=== PATIENT | male | born 1945 | race Caucasian/White ===

== ENCOUNTER 2019-12-28 16:09 | Inpatient (IN) | payer MEDICARE, OTHER, SELFPAY ==
--- NOTE | 2019-12-28 | DI.ECHO.S_ITS ---
[facility]+ [facility] +---------+ : : [address] : : : : [id number] : : : : Phone: [phone]+ Echocardiogram Report + + :Name: RACHID HARLEY Study Date: 12/29/2019 Height: 71 in : :[facility] Weight: 235 lb : : Gender: Male BSA: 2.3 m2 : :: 1945 Age: 74 yrs BP: 141/73 mmHg: :Reason For Study: BILATERAL PE : :Ordering Physician: Lenard : :Hospitalist Performed By: Lucie Millan : :Referring: NEL KING : + + Interpretation Summary The left ventricle is normal in size. Left ventricular systolic function is normal without focal wall motion abnormalities. The ejection fraction is estimated to be 60-65%. Diastolic parameters suggest probable normal left ventricular diastolic function and normal filling pressures. The right ventricle is not well visualized. The right ventricular systolic function is normal. The right ventricular systolic pressure is estimated to be at least 31 mmHg based on an estimated right atrial pressure of 3 mm Hg. The left atrial size is normal. Right atrial size is normal. There is no significant valvular heart disease. The aortic root is normal size. Procedure: A two-dimensional transthoracic echocardiogram with color flow and Doppler was performed. There is no prior echocardiogram noted for this patient. The study quality was technically adequate. The patient was in sinus bradycardia with heart rates between 53-62 bpm during the exam. Left Ventricle: The left ventricle is normal in size. There is normal left ventricular wall thickness. Left ventricular systolic function is normal without focal wall motion abnormalities. The ejection fraction is estimated to be 60-65%. Diastolic parameters suggest probable normal left ventricular diastolic function and normal filling pressures. Right Ventricle: The right ventricle is not well visualized. The right ventricular systolic function is normal. Atria: The left atrial size is normal. Right atrial size is normal. The interatrial septum is intact with no evidence for an atrial septal defect. Mitral Valve: The mitral valve is normal in structure and function. There is no mitral regurgitation noted. Aortic Valve: The aortic valve is trileaflet. The aortic valve opens well. No aortic regurgitation is present. Tricuspid Valve: The tricuspid valve is normal in structure and function. There is mild tricuspid regurgitation. The right ventricular systolic pressure is estimated to be at least 31 mmHg based on an estimated right atrial pressure of 3 mm Hg. Pulmonic Valve: The pulmonic valve is not well seen, but is grossly normal. There is mild pulmonic regurgitation. There is no significant valvular heart disease. Great Vessels: The aortic root is normal size. The aortic arch is mild- moderately enlarged. The ascending aorta could not be visualized. The IVC is of normal diameter and collapses greater than 50% with a sniff. This suggests a low right atrial pressure of 3 mm Hg. Pericardium/ Pleura There is no pericardial effusion. There is no pleural effusion. MMode/2D Measurements & Calculations LVIDd: 4.0 cm LVOT diam: 2.2 cm LVIDs: 2.6 cm Ao root diam: 3.2 cm FS: 33.4 % Ao Arch Diam (Prox Trans): 3.8 cm EPSS: 0.89 cm IVSd: 0.87 cm LVPWd: 0.99 cm LV castañeda. diameter/BSA (cm/m^2): 1.7 LV sys. diameter/BSA (cm/m^2): 1.2 LA A2 area: 15.3 cm2 RA long axis: 4.6 cm LA A4 area: 17.8 cm2 RA area: 17.9 cm2 LA length (vol): 4.8 cm RA vol: 58.6 ml LA vol: 48.4 ml RA : 25.9 ml/m2 LA vol index: 21.4 ml/m2 IVC diam: 1.3 cm RVD1 (basal): 4.4 cm TAPSE: 2.4 cm Doppler Measurements & Calculations Ao V2 max: 111.8 cm/sec LVOT Max Anthony: 109.1 cm/sec Ao V2 mean: 73.3 cm/sec LV V1 max P.8 mmHg Ao max P.0 mmHg LV V1 VTI: 22.3 cm Ao mean P.5 mmHg COLLEEN(I,D): 3.6 cm2 Ao V2 VTI: 24.4 cm COLLEEN(V,D): 3.8 cm2 sev ratio: 0.92 COLLEEN indexed to BSA (cm^2/m^2): 1.6 MV E max anthony: 58.8 cm/sec TR max anthony: 263.3 cm/sec MV A max anthony: 54.9 cm/sec TR max P.8 mmHg MV E/A: 1.1 PA V2 max: 65.5 cm/sec Med Peak E' Anthony: 8.3 cm/sec PA V2 mean: 45.4 cm/sec E/E' med: 7.1 PA mean P.91 mmHg Lat Peak E' Anthony: 8.2 cm/sec PA Accel Time: 0.08 sec E/E' lat: 7.2 E/e' average: 7.1 MV dec time: 0.21 sec MV P1/2t: 60.1 msec MV 2t max anthony: 57.7 cm/sec SV(LVOT): 86.8 ml MVA(2t): 3.7 cm2 Reading Physician:02:39 PM
[2019-12-28 16:33] VITALS: BP 173/85; PULSE 77; RESP 16; TEMP 36.4; O2SAT 96; BMI 32.8
--- NOTE | 2019-12-28 19:25 | ED_ITS ---
HPI - Extremity Injury (Upper) <MEDHAT Cabezas - Last Filed: 12/28/19 22:26> General Chief Complaint: Extremity Injury, Upper Stated Complaint: LT LOWER PAIN AND LT SHOULDER PAIN COUGH UP BLOOD Time Seen by Provider: 12/28/19 19:10 Source: patient and family Mode of arrival: Ambulatory Limitations: no limitations History of Present Illness HPI narrative: The patient is a 74 year male nonsmoker with history of DVT who presents with a chief complaint of left-sided chest pain radiating up to his left shoulder. He states it started suddenly this afternoon, is worse with deep breath and a motion. He feels like he cannot catch his breath. He states he does have history of a DVT, is no longer on any anticoagulants other than aspirin. His previous DVT had no impetus, no surgery, no period of inactivity prior. He denies any current inactivity, surgeries, hospitalizations etcetera. He denies any fevers. He states that he coughed up a small amount of blood prior to coming in. Related Data Home Medications Medication Instructions Recorded Confirmed aspirin 243 mg PO DAILY 12/28/19 12/28/19 omeprazole 20 mg PO DAILY 12/28/19 12/28/19 Allergies Allergy/AdvReac Type Severity Reaction Status Date / Time No Known Drug Allergies Allergy Verified 12/28/19 22:35 Review of Systems <MEDHAT Cabezas - Last Filed: 12/28/19 22:26> Review of Systems Narrative: GENERAL: Denies chills, fatigue, malaise, fever, sweats. HEENT: Denies sinus pain, ear pain, sore throat, difficulty swallowing, dizziness. RESPIRATORY: See HPI CARDIOVASCULAR: See HPI GASTROINTESTINAL: Denies nausea, vomiting, abdominal pain, diarrhea, constipation, melena. : Denies dysuria, frequency, incontinence, hematuria, urinary retention. MUSCULOSKELETAL: denies weakness, joint pain, or bony pain SKIN: Denies rash, skin lesions, or other NEUROLOGIC: Denies weakness, headache, numbness, change in speech, confusion, seizures, incoordination. PSYCHIATRIC: No concerning psychosocial issues. 12 point review of systems is negative except for those stated above Patient History <MEDHAT Cabezas - Last Filed: 12/28/19 22:26> Medical History (Updated 12/29/19 @ 08:50 by FLORA Wang) Dyspepsia (Acute) Lumbar back pain (Acute) Varicose veins of both lower extremities (Acute) Surgical History (Updated 12/29/19 @ 08:50 by FLORA Wang) History of inguinal hernia repair (Acute) History of repair of rotator cuff (Acute) History of varicose vein ligation (Acute) Family History (Updated 12/29/19 @ 08:51 by FLORA Wang) Father Heart attack Coronary artery disease Mother Stroke Social History household members: spouse Smoking Status: Never smoker Smoking Status: Never smoker alcohol intake frequency: holidays/special occasions only Substance Use Type: does not use Exam <DEVIN Cabezas-BC - Last Filed: 12/28/19 22:26> Narrative Exam Narrative: GENERAL: This is a well-nourished, well-developed patient, in no acute distress with at bedside HEAD: Atraumatic. Normocephalic. No temporal or scalp tenderness. EYES: Pupils equal round and reactive. Extraocular motions intact. No scleral icterus. No injection or drainage. ENT: Nose without bleeding, purulent drainage or septal hematoma. Throat without erythema, tonsillar hypertrophy or exudate. Uvula midline. Airway patent. NECK: Trachea midline. No JVD or lymphadenopathy. Supple, nontender, no meningeal signs. CARDIOVASCULAR: Regular rate and rhythm RESPIRATORY: Clear to auscultation. Breath sounds equal bilaterally. No wheezes, rales, or rhonchi. Occasional cough. No increased respiratory effort. No accessory muscle use. GASTROINTESTINAL: Abdomen soft, non-tender, nondistended. No hepato- splenomegaly, or palpable masses. No guarding. EXTREMITIES: No clubbing, cyanosis, or edema. No joint tenderness, effusion, or edema noted. BACK: Nontender without deformity or crepitance. No flank tenderness. NEURO: AOx3. SKIN: No rash or erythema. Initial Vital Signs Initial Vital Signs: Vital Signs Temperature 97.6 F 12/28/19 16:33 Pulse Rate 77 12/28/19 16:33 Respiratory Rate 16 12/28/19 16:33 Blood Pressure 173/85 H 12/28/19 16:33 Pulse Oximetry 96 12/28/19 16:33 <Roberto Castle DO - Last Filed: 12/29/19 17:29> Initial Vital Signs Initial Vital Signs: Vital Signs Temperature 97.6 F 12/28/19 16:33 Pulse Rate 77 12/28/19 16:33 Respiratory Rate 16 12/28/19 16:33 Blood Pressure 173/85 H 12/28/19 16:33 Pulse Oximetry 96 12/28/19 16:33 Scores <MEDHAT CabezasBC - Last Filed: 12/28/19 22:26> GCS Bob coma scale eye opening: Spontaneous Bob coma scale verbal response: Orientated Bob coma scale motor response: Obey commands Rayle coma scale total score: 15 PERC Score Age greater than or equal to 50 years: Yes Heart rate greater than or equal to 100 bpm: No Room Air O2 Sat less than 95%: No Unilateral leg swelling: No Recent trauma or surgery: No Hemoptysis: Yes Prior PE or DVT: Yes Hormone Use: No Total PERC Score: 3 Wells' Criteria for PE Clinical signs and symptoms of DVT: No PE is #1 Dx or equally likely: Yes Heart rate > 100: No Immobilization at least 3 days or surg in previous 4 weeks: No History of PE or DVT: Yes Hemoptysis: Yes Malignancy w/Treatment within 6 months or palliative: No Wells' PE Score total: 5.5 Course <DAVID Cabezas - Last Filed: 12/28/19 22:26> Orders Ordered: Acetaminophen (Tylenol) 650 mg PO Q6HR PRN PRN Reason: Fever/Mild Pain (1-3) Al Hydrox/Mg Hydrox/Simethicone (Maalox Plus) 30 ml PO Q6HR PRN PRN Reason: Dyspepsia Bisacodyl (Dulcolax) 10 mg MO DAILY PRN PRN Reason: Constipation Calcium Carbonate (Tums) 1,000 mg PO Q4HR PRN PRN Reason: Dyspepsia Docusate Sodium (Colace) 100 mg PO BID PRN PRN Reason: Constipation Enoxaparin Sodium (Lovenox) 105 mg 1 mg/kg (105 mg) SUBCUT BID [facility] Last Admin: 12/29/19 09:31 Dose: 105 mg Documented by: JUAREZ Azithromycin 500 mg/ Dextrose 250 mls @ 250 mls/hr IV Q24H [facility] Last Admin: 12/29/19 06:24 Dose: 250 mls/hr Documented by: JES Ceftriaxone Sodium/Dextrose (Rocephin) 2 gm in 50 mls @ 100 mls/hr IV Q24H [facility] Last Admin: 12/29/19 05:26 Dose: 100 mls/hr Documented by: JES Naloxone HCl (Narcan) 0.2 mg IV Q2MIN PRN PRN Reason: Opiate Reversal Ondansetron HCl (Zofran) 4 mg IV Q8HR PRN PRN Reason: Nausea And Vomiting Last Admin: 12/29/19 08:32 Dose: 4 mg Documented by: JUAREZ Tramadol HCl (Ultram) 50 mg PO TID PRN PRN Reason: Pain, Moderate (4-6) Discontinued Medications Hydrocodone Bitart/Acetaminophen ([place] 5/325) 1 tab PO Q4HR PRN PRN Reason: Pain, Moderate (4-6) Last Admin: 12/29/19 01:03 Dose: 1 tab Documented by: Admin: 12/29/19 00:23 Dose: 1 tab Documented by: JES Hydrocodone Bitart/Acetaminophen ([place] 5/325) 2 tab PO Q4HR PRN PRN Reason: Pain, Severe (7-10) Last Admin: 12/29/19 05:39 Dose: 2 tab Documented by: JES Enoxaparin Sodium (Lovenox) 105 mg 1 mg/kg (105 mg) SUBCUT NOW ONE Stop: 12/28/19 22:22 Last Admin: 12/28/19 22:28 Dose: 105 mg Documented by: AYDEN Enoxaparin Sodium (Lovenox) 105 mg 1 mg/kg (105 mg) SUBCUT BID [facility] Last Admin: 12/29/19 10:09 Dose: Not Given Documented by: JUAREZ Hydromorphone HCl (Dilaudid) 1 mg IV Q4H PRN PRN Reason: Breakthrough Pain Last Admin: 12/29/19 02:46 Dose: 1 mg Documented by: JES Hydromorphone HCl (Dilaudid) 1 mg IV Q3HR PRN PRN Reason: Breakthrough Pain Last Admin: 12/29/19 05:27 Dose: 1 mg Documented by: JES Ketorolac Tromethamine (Toradol) 30 mg IV NOW ONE Stop: 12/29/19 04:25 Last Admin: 12/29/19 05:15 Dose: Not Given Documented by: JES Ketorolac Tromethamine (Toradol) 30 mg IV NOW ONE Stop: 12/29/19 05:16 Last Admin: 12/29/19 05:26 Dose: 30 mg Documented by: JES Vital Signs Vital signs: Vital Signs - 8 hr 12/28/19 16:33 12/28/19 22:16 Temperature 97.6 F 98.9 F Pulse Rate 77 86 Respiratory Rate 16 18 Blood Pressure 173/85 H Blood Pressure [Left Arm] 155/79 H Pulse Oximetry 96 92 <Roberto Castle, - Last Filed: 12/29/19 17:29> Orders Ordered: Acetaminophen (Tylenol) 650 mg PO Q6HR PRN PRN Reason: Fever/Mild Pain (1-3) Al Hydrox/Mg Hydrox/Simethicone (Maalox Plus) 30 ml PO Q6HR PRN PRN Reason: Dyspepsia Bisacodyl (Dulcolax) 10 mg MO DAILY PRN PRN Reason: Constipation Calcium Carbonate (Tums) 1,000 mg PO Q4HR PRN PRN Reason: Dyspepsia Docusate Sodium (Colace) 100 mg PO BID PRN PRN Reason: Constipation Enoxaparin Sodium (Lovenox) 105 mg 1 mg/kg (105 mg) SUBCUT BID [facility] Last Admin: 12/29/19 09:31 Dose: 105 mg Documented by: JUAREZ Azithromycin 500 mg/ Dextrose 250 mls @ 250 mls/hr IV Q24H [facility] Last Admin: 12/29/19 06:24 Dose: 250 mls/hr Documented by: JES Ceftriaxone Sodium/Dextrose (Rocephin) 2 gm in 50 mls @ 100 mls/hr IV Q24H [facility] Last Admin: 12/29/19 05:26 Dose: 100 mls/hr Documented by: JES Naloxone HCl (Narcan) 0.2 mg IV Q2MIN PRN PRN Reason: Opiate Reversal Ondansetron HCl (Zofran) 4 mg IV Q8HR PRN PRN Reason: Nausea And Vomiting Last Admin: 12/29/19 08:32 Dose: 4 mg Documented by: JUAREZ Tramadol HCl (Ultram) 50 mg PO TID PRN PRN Reason: Pain, Moderate (4-6) Discontinued Medications Hydrocodone Bitart/Acetaminophen ([place] 5/325) 1 tab PO Q4HR PRN PRN Reason: Pain, Moderate (4-6) Last Admin: 12/29/19 01:03 Dose: 1 tab Documented by: Admin: 12/29/19 00:23 Dose: 1 tab Documented by: JES Hydrocodone Bitart/Acetaminophen ([place] 5/325) 2 tab PO Q4HR PRN PRN Reason: Pain, Severe (7-10) Last Admin: 12/29/19 05:39 Dose: 2 tab Documented by: JES Enoxaparin Sodium (Lovenox) 105 mg 1 mg/kg (105 mg) SUBCUT NOW ONE Stop: 12/28/19 22:22 Last Admin: 12/28/19 22:28 Dose: 105 mg Documented by: AYDEN Enoxaparin Sodium (Lovenox) 105 mg 1 mg/kg (105 mg) SUBCUT BID [facility] Last Admin: 12/29/19 10:09 Dose: Not Given Documented by: JUAREZ Hydromorphone HCl (Dilaudid) 1 mg IV Q4H PRN PRN Reason: Breakthrough Pain Last Admin: 12/29/19 02:46 Dose: 1 mg Documented by: JES Hydromorphone HCl (Dilaudid) 1 mg IV Q3HR PRN PRN Reason: Breakthrough Pain Last Admin: 12/29/19 05:27 Dose: 1 mg Documented by: JES Ketorolac Tromethamine (Toradol) 30 mg IV NOW ONE Stop: 12/29/19 04:25 Last Admin: 12/29/19 05:15 Dose: Not Given Documented by: JES Ketorolac Tromethamine (Toradol) 30 mg IV NOW ONE Stop: 12/29/19 05:16 Last Admin: 12/29/19 05:26 Dose: 30 mg Documented by: JES Vital Signs Vital signs: Vital Signs - 8 hr 12/28/19 16:33 12/28/19 22:16 Temperature 97.6 F 98.9 F Pulse Rate 77 86 Respiratory Rate 16 18 Blood Pressure 173/85 H Blood Pressure [Left Arm] 155/79 H Pulse Oximetry 96 92 MDM - Extremity Injury (Upper) <DAVID Cabezas - Last Filed: 12/28/19 22:26> Lab Data Result diagrams: 12/29/19 05:54 12/29/19 05:54 Labs: Lab Results 12/28/19 12/28/19 12/28/19 Range/Units 19:42 20:15 20:15 WBC 11.2 H (4.5-11.0) X10^3/uL RBC 4.58 (4.5-5.9) X10^6/uL Hgb 15.0 (13.5-17.5) g/dL Hct 43.4 (41-53) % MCV 94.7 (80-100) fL MCH 32.8 (26-34) PG MCHC 34.6 (30-36) % RDW 13.0 (11.6-14.8) % Plt Count 214 (150-400) X10^3/uL Neut % (Auto) 68.3 (50-75) % Lymph % (Auto) 17.4 L (25-40) % [place] % (Auto) 12.5 (3-14) % Eos % (Auto) 1.6 L (2-4) % Baso % (Auto) 0.2 (0-2) % Neut # (Auto) 7700 H (3799-6630) /uL Lymph # (Auto) 2000 (1104-0993) /uL [place] # (Auto) 1400 H (0-900) /uL Eos # (Auto) 200 (0-450) /uL Baso # (Auto) 0 (0-100) /uL PT 12.4 (10.1-12.7) SECONDS INR 1.1 (0.9-1.3) APTT 27 (26.4-36.2) SECONDS D-Dimer 3716 H (<230) ng/mL Sodium (137-145) mmol/L Potassium (3.4-5.1) mmol/L Chloride (98-107) mmol/L Carbon Dioxide (22-32) mmol/L BUN (9-20) mg/dL Creatinine (0.66-1.25) mg/dL Estimated GFR (>60) mL/min BUN/Creatinine Ratio (6-22) Glucose (80-110) mg/dL Calcium (8.4-10.2) mg/dL Magnesium (1.6-2.3) mg/dL Total Bilirubin (0.2-1.3) mg/dL AST (17-59) IU/L ALT (<50) IU/L Alkaline Phosphatase (38-126) U/L Total Creatine Kinase (55-170) U/L CK-MB (CK-2) CK-MB (CK-2) Rel Index Troponin I (0.01-0.034) ng/mL NT-Pro-B Natriuret Pep (<125) pg/mL Total Protein (6.3-8.2) g/dL Albumin (3.5-5.0) g/dL Globulin (1.7-4.1) g/dL Albumin/Globulin Ratio (1.0-2.8) Procalcitonin (<0.5) ng/mL Urine RBC 0-1/hpf (0-5/HPF) Urine WBC 0-1/hpf (0-5/HPF) Other Crystals Hippuric acid Urine Bacteria None seen (None) Ur Culture Indicated? Cult not indicated 12/28/19 12/28/19 12/28/19 Range/Units 20:15 20:15 20:15 WBC (4.5-11.0) X10^3/uL RBC (4.5-5.9) X10^6/uL Hgb (13.5-17.5) g/dL Hct (41-53) % MCV (80-100) fL MCH (26-34) PG MCHC (30-36) % RDW (11.6-14.8) % Plt Count (150-400) X10^3/uL Neut % (Auto) (50-75) % Lymph % (Auto) (25-40) % [place] % (Auto) (3-14) % Eos % (Auto) (2-4) % Baso % (Auto) (0-2) % Neut # (Auto) (1308-1866) /uL Lymph # (Auto) (3854-6414) /uL [place] # (Auto) (0-900) /uL Eos # (Auto) (0-450) /uL Baso # (Auto) (0-100) /uL PT (10.1-12.7) SECONDS INR (0.9-1.3) APTT (26.4-36.2) SECONDS D-Dimer (<230) ng/mL Sodium 137 (137-145) mmol/L Potassium 4.7 (3.4-5.1) mmol/L Chloride 102 (98-107) mmol/L Carbon Dioxide 27 (22-32) mmol/L BUN 24 H (9-20) mg/dL Creatinine 1.00 (0.66-1.25) mg/dL Estimated GFR > 60.0 (>60) mL/min BUN/Creatinine Ratio 24.0 H (6-22) Glucose 118 H (80-110) mg/dL Calcium 9.2 (8.4-10.2) mg/dL Magnesium 2.3 (1.6-2.3) mg/dL Total Bilirubin 0.7 (0.2-1.3) mg/dL AST 40 (17-59) IU/L ALT 23 (<50) IU/L Alkaline Phosphatase 91 (38-126) U/L Total Creatine Kinase 86 (55-170) U/L CK-MB (CK-2) TNP CK-MB (CK-2) Rel Index TNP Troponin I < 0.012 (0.01-0.034) ng/mL NT-Pro-B Natriuret Pep 107 (<125) pg/mL Total Protein 8.4 H (6.3-8.2) g/dL Albumin 4.4 (3.5-5.0) g/dL Globulin 4.0 (1.7-4.1) g/dL Albumin/Globulin Ratio 1.1 (1.0-2.8) Procalcitonin 0.06 (<0.5) ng/mL Urine RBC (0-5/HPF) Urine WBC (0-5/HPF) Other Crystals Urine Bacteria (None) Ur Culture Indicated? Urine Dip Bedside Urine Glucose Negative Bedside Urine Bilirubin - Negative Bedside Urine Ketone - Negative Urine Specific [place] 1.025 Bedside Urine Occult Blood +/- Bedside Urine pH 6.0 Bedside Urine Protein +/- 15 Bedside Urine Urobilinogen - Negative Bedside Urine Nitrite - Negative Bedside Urine Leukocytes - Negative Esterase Imaging Data Chest x-ray: Radiologist's Impression: [address] [place] [id number] XRay Report Signed Patient: Alejandro Arreola YANELI#: [id number] : 7Acct:[id number] Age/Sex: 74 / MDate of Service: 12/28/19 Loc: ED Accession Number: [id number] Procedure: XR chest 2V Ordering Provider: Greta Templeton-JEANNIE PROCEDURE: XR CHEST 2V INDICATIONS: sob TECHNIQUE: 2 views of the chest were acquired. COMPARISON: None. FINDINGS: Surgical changes and devices: None. Lungs and pleura: Low lung volumes. Moderate left mid and lower lung airspace opacity. No pleural effusions or pneumothorax. Mediastinum: Mediastinal contours are normal. Heart size is normal. Bones and chest wall: No suspicious bony abnormalities. Soft tissues appear unremarkable. IMPRESSION: Left lung pneumonia. Dictated by: Malgorzata Zuluaga M.D. on 12/28/2019 at 20:01 Approved by: Malgorzata Zuluaga M.D. on 12/28/2019 at 20:01 CT scan - chest: Radiologist's Impression: [address] [place] [address] CT Scan Report Signed Patient: Alejandro Arreola JMR#: [id number] : [id number]:[id number] Age/Sex: 74 / MDate of Service: 12/28/19 Loc: ED Accession Number: [id number] Procedure: CT chest wo con Ordering Provider: Greta Templeton-JEANNIE PROCEDURE: CT CHEST W CON INDICATIONS: hx pe, sob TECHNIQUE: After the administration of intravenous contrast, 5 mm thick sections acquired from the pulmonary apices to the posterior costophrenic angles. 1 mm axial lung, 5 mm thick coronal and sagittal reformats and 7 mm axial MIP were acquired. For radiation dose reduction, the following was used: automated exposure control, adjustment of mA and/or kV according to patient size. COMPARISON: None. FINDINGS: Image quality: Excellent. Lungs and pleura: Bibasilar pneumonia is present. No pleural effusions or pneumothorax. Central and peripheral airways are patent and normal in caliber. Mediastinum: Heart size is normal. Calcification of the coronary vasculature. No pericardial effusion. No mediastinal or hilar adenopathy by size criteria. Thoracic aorta and central pulmonary arteries are normal in size. Low-density filling defects are seen within the bilateral lower lobe segmental and subsegmental pulmonary arterial branches. Esophagus is normal in caliber. Small hiatal hernia. Bones and chest wall: No small suspicious bony lesions. No vertebral body compression fractures. No axillary or supraclavicular adenopathy by size criteria. Thyroid gland is within normal limits. Abdomen: Visualized upper abdominal solid organs appear normal. Upper abdominal bowel loops are normal in caliber. IMPRESSION: 1.Bilateral left greater than right pulmonary emboli. 2. Bibasilar atelectasis versus pneumonia. 3. Coronary artery disease. 4. Small hiatal hernia. 5. Findings discussed with Greta Templeton on 12.28.19 at 2153 hrs. Dictated by: Malgorzata Zuluaga M.D. on 12/28/2019 at 21:56 Approved by: Malgorzata Zuluaga M.D. on 12/28/2019 at 22:00 ECG Data Attestation: I personally reviewed and interpreted this ECG as follows: Interpretation: Sinus rhythm. Ventricular rate 88. P.r. interval 218. Had no ectopy noted. [facility] Narrative Medical decision making narrative: The patient is a 74-year-old male who presents with a chief complaint of left-sided chest pain. He has history of DVT for a positive D-dimer. CT illustrate bilateral PEs. No elevated BNP or troponin, so no signs of right heart strain. The patient has had DVT prior, no impetus. Is possible that he has an inherited genetic coagulation disorder. I discussed length admission for echocardiogram etcetera. He is in accordance with that. Spoke with Mark HINES who kindly agreed to accept the patient for observation. Agreed upon Lovenox at 1 milligram/kilogram which was initiated in the emergency department. Patient have no questions or concerns regarding planned hospital stay. <Roberto Castle, - Last Filed: 12/29/19 17:29> Lab Data Labs: Lab Results 12/28/19 12/28/19 12/28/19 Range/Units 19:42 20:15 20:15 WBC 11.2 H (4.5-11.0) X10^3/uL RBC 4.58 (4.5-5.9) X10^6/uL Hgb 15.0 (13.5-17.5) g/dL Hct 43.4 (41-53) % MCV 94.7 (80-100) fL MCH 32.8 (26-34) PG MCHC 34.6 (30-36) % RDW 13.0 (11.6-14.8) % Plt Count 214 (150-400) X10^3/uL Neut % (Auto) 68.3 (50-75) % Lymph % (Auto) 17.4 L (25-40) % [place] % (Auto) 12.5 (3-14) % Eos % (Auto) 1.6 L (2-4) % Baso % (Auto) 0.2 (0-2) % Neut # (Auto) 7700 H (2528-9740) /uL Lymph # (Auto) 2000 (9384-5833) /uL [place] # (Auto) 1400 H (0-900) /uL Eos # (Auto) 200 (0-450) /uL Baso # (Auto) 0 (0-100) /uL PT 12.4 (10.1-12.7) SECONDS INR 1.1 (0.9-1.3) APTT 27 (26.4-36.2) SECONDS D-Dimer 3716 H (<230) ng/mL Sodium (137-145) mmol/L Potassium (3.4-5.1) mmol/L Chloride (98-107) mmol/L Carbon Dioxide (22-32) mmol/L BUN (9-20) mg/dL Creatinine (0.66-1.25) mg/dL Estimated GFR (>60) mL/min BUN/Creatinine Ratio (6-22) Glucose (80-110) mg/dL Calcium (8.4-10.2) mg/dL Magnesium (1.6-2.3) mg/dL Total Bilirubin (0.2-1.3) mg/dL AST (17-59) IU/L ALT (<50) IU/L Alkaline Phosphatase (38-126) U/L Total Creatine Kinase (55-170) U/L CK-MB (CK-2) CK-MB (CK-2) Rel Index Troponin I (0.01-0.034) ng/mL NT-Pro-B Natriuret Pep (<125) pg/mL Total Protein (6.3-8.2) g/dL Albumin (3.5-5.0) g/dL Globulin (1.7-4.1) g/dL Albumin/Globulin Ratio (1.0-2.8) Procalcitonin (<0.5) ng/mL Urine RBC 0-1/hpf (0-5/HPF) Urine WBC 0-1/hpf (0-5/HPF) Other Crystals Hippuric acid Urine Bacteria None seen (None) Ur Culture Indicated? Cult not indicated 12/28/19 12/28/19 12/28/19 Range/Units 20:15 20:15 20:15 WBC (4.5-11.0) X10^3/uL RBC (4.5-5.9) X10^6/uL Hgb (13.5-17.5) g/dL Hct (41-53) % MCV (80-100) fL MCH (26-34) PG MCHC (30-36) % RDW (11.6-14.8) % Plt Count (150-400) X10^3/uL Neut % (Auto) (50-75) % Lymph % (Auto) (25-40) % [place] % (Auto) (3-14) % Eos % (Auto) (2-4) % Baso % (Auto) (0-2) % Neut # (Auto) (8265-7089) /uL Lymph # (Auto) (7082-7174) /uL [place] # (Auto) (0-900) /uL Eos # (Auto) (0-450) /uL Baso # (Auto) (0-100) /uL PT (10.1-12.7) SECONDS INR (0.9-1.3) APTT (26.4-36.2) SECONDS D-Dimer (<230) ng/mL Sodium 137 (137-145) mmol/L Potassium 4.7 (3.4-5.1) mmol/L Chloride 102 (98-107) mmol/L Carbon Dioxide 27 (22-32) mmol/L BUN 24 H (9-20) mg/dL Creatinine 1.00 (0.66-1.25) mg/dL Estimated GFR > 60.0 (>60) mL/min BUN/Creatinine Ratio 24.0 H (6-22) Glucose 118 H (80-110) mg/dL Calcium 9.2 (8.4-10.2) mg/dL Magnesium 2.3 (1.6-2.3) mg/dL Total Bilirubin 0.7 (0.2-1.3) mg/dL AST 40 (17-59) IU/L ALT 23 (<50) IU/L Alkaline Phosphatase 91 (38-126) U/L Total Creatine Kinase 86 (55-170) U/L CK-MB (CK-2) TNP CK-MB (CK-2) Rel Index TNP Troponin I < 0.012 (0.01-0.034) ng/mL NT-Pro-B Natriuret Pep 107 (<125) pg/mL Total Protein 8.4 H (6.3-8.2) g/dL Albumin 4.4 (3.5-5.0) g/dL Globulin 4.0 (1.7-4.1) g/dL Albumin/Globulin Ratio 1.1 (1.0-2.8) Procalcitonin 0.06 (<0.5) ng/mL Urine RBC (0-5/HPF) Urine WBC (0-5/HPF) Other Crystals Urine Bacteria (None) Ur Culture Indicated? Urine Dip Bedside Urine Glucose Negative Bedside Urine Bilirubin - Negative Bedside Urine Ketone - Negative Urine Specific [place] 1.025 Bedside Urine Occult Blood +/- Bedside Urine pH 6.0 Bedside Urine Protein +/- 15 Bedside Urine Urobilinogen - Negative Bedside Urine Nitrite - Negative Bedside Urine Leukocytes - Negative Esterase Discharge Plan Departure Patient Disposition: Admitted as Observation Clinical Impression: Bilateral pulmonary embolism Discharge Date/Time: 12/28/19 22:35 Admit Date/Time: 12/28/19 22:25 Admit Provider: Dipak Flores
--- NOTE | 2019-12-28 19:33 | DI.RAD.S_ITS ---
PROCEDURE: XR CHEST 2V INDICATIONS: sob TECHNIQUE: 2 views of the chest were acquired. COMPARISON: None. FINDINGS: Surgical changes and devices: None. Lungs and pleura: Low lung volumes. Moderate left mid and lower lung airspace opacity. No pleural effusions or pneumothorax. Mediastinum: Mediastinal contours are normal. Heart size is normal. Bones and chest wall: No suspicious bony abnormalities. Soft tissues appear unremarkable. IMPRESSION: Left lung pneumonia. Dictated by: Malgorzata Zuluaga M.D. on 12/28/2019 at 20:01 Approved by: Malgorzata Zuluaga M.D. on 12/28/2019 at 20:01
[2019-12-28 20:07] LABS: Bacteria Urine None Seen
[2019-12-28 20:29] LABS: Add Manual Diff / Slide Review NO; Basophils Absolute Auto 0 /uL (0-100); Basophils Percent Auto 0.2 % (0-2); Eosinophils Absolute Auto 200 /uL (0-450); Eosinophils Percent Auto 1.6 % (2-4); Hematocrit 43.4 % (41-53); Lymphocytes Absolute Auto 2000 /uL (1100-4500); Lymphocytes Percent Auto 17.4 % (25-40); Mean Corpuscular HGB Conc 34.6 % (30-36); Mean Corpuscular Hemoglobin 32.8 PG (26-34); Mean Corpuscular Volume 94.7 fL (80-100); Monocytes Absolute Auto 1400 /uL (0-900); Monocytes Percent Auto 12.5 % (3-14); Neutrophils Absolute Auto 7700 /uL (1500-7000); Neutrophils Percent Auto 68.3 % (50-75); Platelet Count 214 X10^3/uL (150-400); Red Blood Cell Count 4.58 X10^6/uL (4.5-5.9); White Blood Cell Count 11.2 X10^3/uL (4.5-11.0)
[2019-12-28 20:34] LABS: RBC Urine 0-1/HPF (0-5/HPF); WBC Urine 0-1/HPF (0-5/HPF)
[2019-12-28 20:35] LABS: Culture Indicated Urine Cult Not Indicated
[2019-12-28 20:44] LABS: Creatine Kinase 86 U/L (55-170); Magnesium 2.3 mg/dL (1.6-2.3)
[2019-12-28 20:45] LABS: Alanine Aminotransferase 23 IU/L (<50); Albumin 4.4 g/dL (3.5-5.0); Albumin Globulin Ratio 1.1 (1.0-2.8); Alkaline Phosphatase 91 U/L (38-126); Aspartate Aminotransferase 40 IU/L (17-59); Bilirubin Total 0.7 mg/dL (0.2-1.3); Blood Urea Nitrogen 24 mg/dL (9-20); Calcium 9.2 mg/dL (8.4-10.2); Carbon Dioxide 27 mmol/L (22-32); Chloride 102 mmol/L (98-107); Estimated Glomerular Filt Rate > 60.0 mL/min (>60); Glucose 118 mg/dL (80-110); Potassium 4.7 mmol/L (3.4-5.1); Sodium 137 mmol/L (137-145); Total Protein 8.4 g/dL (6.3-8.2)
[2019-12-28 20:46] LABS: HEMOLYSIS 85 (0-50)
[2019-12-28 20:54] LABS: INR 1.1 (0.9-1.3); NT-proBNP (BNP-Adult 18+) 107 pg/mL (<125); Prothrombin Time 12.4 SECONDS (10.1-12.7)
[2019-12-28 20:57] LABS: PTT Partial Thromboplastin Tim 27 SECONDS (26.4-36.2)
[2019-12-28 21:07] LABS: D Dimer 3716 ng/mL (<230)
--- NOTE | 2019-12-28 21:08 | DI.CT.S_ITS ---
PROCEDURE: CT CHEST W CON INDICATIONS: hx pe, sob TECHNIQUE: After the administration of intravenous contrast, 5 mm thick sections acquired from the pulmonary apices to the posterior costophrenic angles. 1 mm axial lung, 5 mm thick coronal and sagittal reformats and 7 mm axial MIP were acquired. For radiation dose reduction, the following was used: automated exposure control, adjustment of mA and/or kV according to patient size. COMPARISON: None. FINDINGS: Image quality: Excellent. Lungs and pleura: Bibasilar pneumonia is present. No pleural effusions or pneumothorax. Central and peripheral airways are patent and normal in caliber. Mediastinum: Heart size is normal. Calcification of the coronary vasculature. No pericardial effusion. No mediastinal or hilar adenopathy by size criteria. Thoracic aorta and central pulmonary arteries are normal in size. Low-density filling defects are seen within the bilateral lower lobe segmental and subsegmental pulmonary arterial branches. Esophagus is normal in caliber. Small hiatal hernia. Bones and chest wall: No small suspicious bony lesions. No vertebral body compression fractures. No axillary or supraclavicular adenopathy by size criteria. Thyroid gland is within normal limits. Abdomen: Visualized upper abdominal solid organs appear normal. Upper abdominal bowel loops are normal in caliber. IMPRESSION: 1.Bilateral left greater than right pulmonary emboli. 2. Bibasilar atelectasis versus pneumonia. 3. Coronary artery disease. 4. Small hiatal hernia. 5. Findings discussed with Greta Templeton on 12.28.19 at 2153 hrs. Dictated by: Malgorzata Zuluaga M.D. on 12/28/2019 at 21:56 Approved by: Malgorzata Zuluaga M.D. on 12/28/2019 at 22:00
[2019-12-28 21:11] LABS: Troponin I < 0.012 ng/mL (0.01-0.034)
[2019-12-28 21:16] LABS: Procalcitonin 0.06 ng/mL (<0.5)
[2019-12-28 21:30] VITALS: O2SAT 92
[2019-12-28 22:16] VITALS: BP 155/79; PULSE 86; RESP 18; TEMP 37.2; O2SAT 92
[2019-12-28] MEDS: ENOXAPARIN 80 MG/0.8 ML SYRINGE 105 MG SUBCUT (22:28)
[2019-12-28 22:40] VITALS: BP 148/81; PULSE 88; RESP 20; TEMP 36.9; O2SAT 92; BMI 32.8
--- NOTE | 2019-12-28 23:00 | P.HP_ITS ---
History of Present Illness History of Present Illness Date Patient Seen: 12/28/19 Time Patient Seen: 23:10 Chief complaint: LT LOWER PAIN AND LT SHOULDER PAIN COUGH UP BLOOD Narrative: Mr. Alejandro Waggoner is a 74-year-old male who with a history significant for prior DVT of the right leg with a familial history of DVT, varicose veins and L4-5 back pain who presents to the ER with complaints of sudden onset left-sided chest pain. Patient was in his usual state health in participating in [employer] class after which he developed a sudden onset left-sided chest pain radiating to the left shoulder this afternoon. He describes the pain as pleuritic in nature worsening with deep inspiration and with movement. He describes associated shortness of breath and difficulty taking a full breath related to the pain and has had an episode hemoptysis. Patient has had a prior DVT that was unprovoked and reports having been evaluated for familial linked hypercoagulable syndromes but does not recall if he had Leiden factor 5 evaluated. Patient has no current risk factors or precipitating events. Reports no recent fevers or chills, headaches and dizziness, nasal congestion or sore throat. He has chest pain as above with associated shortness of breath but denies cough or wheezing. He denies heartburn, nausea or vomiting but describes a discomfort in the right upper quadrant of his abdomen that is non palpable reproducible. He reports no changes in bowel or bladder habits. He is normally active and fully independent in all ADLs. Upon arrival the ER the patient's Tommy febrile with temperature 97.6?, heart rate of 77, blood pressure of 173/85, respirations 16 saturating 96%. On EKG the patient has a sinus rhythm with a ventricular rate of 77 without ectopy or block and no ST or T-wave changes. The patient underwent a chest CT with contrast which finds bibasilar atelectasis versus pneumonia pneumonia in feeling deficits of bilateral segmental and subsegmental pulmonary artery branches left greater than right. A chest x-ray is obtained which finds left middle lobe and lower lobe opacities consistent with pneumonia. On laboratory analysis the patient has a white count of 11.2, hemoglobin 15, hematocrit 43.4 and platelets of 214. A coagulation has a PT of 12 point, INR 0.1 and PTT of 27. He has an elevated D- dimer 3716. His electrolytes are within normal limits he has a BUN of 24 and a creatinine 1.0. His LFTs are within normal limits and has a magnesium of 2.3. His total CK is 86 has a troponin of less than 0.012. His proBNP is 107. Procalcitonin is 0.06. In the ER the patient is started on Lovenox 1 milligram/kilogram and is admitted for bilateral PE and left lung pneumonia. Patient History Medical History (Updated 12/29/19 @ 08:50 by FLORA Wang) Dyspepsia (Acute) Lumbar back pain (Acute) Varicose veins of both lower extremities (Acute) Surgical History (Updated 12/29/19 @ 08:50 by FLORA Wang) History of inguinal hernia repair (Acute) History of repair of rotator cuff (Acute) History of varicose vein ligation (Acute) Family & Social History Family History (Updated 12/29/19 @ 08:51 by FLORA Wang) Father Heart attack Coronary artery disease Mother Stroke Safety & Behavioral: Feels Safe in Current Yes Environment Been Physically Hurt or No Threatened By a Person Tobacco & Substance use: Smoking Status Never smoker alcohol intake frequency holiday/special occasion Substance Use Type does not use Comment: The patient lives in a single family two-story home with his to whom he has been for 12 years. The patient endorses a strong family history of hypercoagulability with multiple family member it's experiencing DVTs and pulmonary emboli. His father had heart attack at age 43 and from heart attack at age 50. His mother from stroke. Smoking: Patient tried cigarettes and pipe smoking in college. Alcohol: Patient endorses consuming alcohol 3-4 times monthly. Substance use: The patient denies recreational pharmaceuticals herbal or cannabis products. Advanced directives: The patient states he has formal advanced directives and states his desire to be FULL CODE. He designates his to be his surrogate decision maker. Meds Home Medications and Allergies Home Medications Medication Instructions Recorded Confirmed Type aspirin 243 mg PO DAILY 12/28/19 12/28/19 History omeprazole 20 mg PO DAILY 12/28/19 12/28/19 History Allergies Allergy/AdvReac Type Severity Reaction Status Date / Time No Known Drug Allergies Allergy Verified 12/28/19 22:35 Review of Systems Review of Systems ROS: Yes All systems reviewed with the patient and are negative except as otherwise documented Exam Vital Signs (past 8 hours): - 12/28/19 16:33 12/28/19 22:16 Temperature 97.6 F 98.9 F Pulse Rate 77 86 Respiratory Rate 16 18 Blood Pressure 173/85 H Blood Pressure [Left Arm] 155/79 H Pulse Oximetry 96 92 Oxygen Delivery Method Room Air Narrative Exam Narrative: GENERAL APPEARANCE: well developed, obese male, mildly uncomfortable appearing in no acute distress. HEENT: Normocephalic, PERRLA, conjunctiva clear, sclera anicteric, no sinus tenderness to percussion, no rhinorrhea, oropharynx pink and moist. NECK/THYROID: neck supple, no jugular venous distention, no carotid bruit, no thyromegaly, trachea midline. LYMPH NODES: no cervical or supraclavicular lymphadenopathy. SKIN: warm and dry, no suspicious lesions, no rashes, good turgor. HEART: regular rate and rhythm, S1-S2 without murmur, no rubs or gallops, brisk capillary refill, trace pedal edema LUNGS: clear to auscultation bilaterally, no coarseness crackles or wheezing, no cough present CHEST: Symmetrical movement, no accessory muscle use, shallow tidal volume with pain on deep inspiration ABDOMEN: Soft, no distention, no abdominal tenderness on palpation, no guarding or peritoneal signs, no organomegaly, no flank or suprapubic tenderness, active bowel tones. BACK: Normal curvature, nontender to palpation, no CVA tenderness on percussion EXTREMITIES: moves all extremities, strength is 5/5 and symmetrical, no deformities or joint effusions. NEUROLOGIC: AAO x4, no focal neurologic deficits, cranial nerves II-XII grossly intact , sensation intact to light touch. PSYCH: alert, cognitive function intact, good eye contact, appropriate with stable behavior Objective Labs Result Diagrams: 12/29/19 05:54 12/29/19 05:54 Labs: Laboratory Results - last 24 hr 12/28/19 12/28/19 12/28/19 19:42 20:15 20:15 WBC 11.2 H RBC 4.58 Hgb 15.0 Hct 43.4 MCV 94.7 MCH 32.8 MCHC 34.6 RDW 13.0 Plt Count 214 Neut % (Auto) 68.3 Lymph % (Auto) 17.4 L [place] % (Auto) 12.5 Eos % (Auto) 1.6 L Baso % (Auto) 0.2 Neut # (Auto) 7700 H Lymph # (Auto) 2000 [place] # (Auto) 1400 H Eos # (Auto) 200 Baso # (Auto) 0 PT 12.4 INR 1.1 APTT 27 D-Dimer 3716 H Sodium Potassium Chloride Carbon Dioxide BUN Creatinine Estimated GFR BUN/Creatinine Ratio Glucose Calcium Magnesium Total Bilirubin AST ALT Alkaline Phosphatase Total Creatine Kinase CK-MB (CK-2) CK-MB (CK-2) Rel Index Troponin I NT-Pro-B Natriuret Pep Total Protein Albumin Globulin Albumin/Globulin Ratio Procalcitonin Urine RBC 0-1/hpf Urine WBC 0-1/hpf Other Crystals Hippuric acid Urine Bacteria None seen Ur Culture Indicated? Cult not indicated 12/28/19 12/28/19 12/28/19 20:15 20:15 20:15 WBC RBC Hgb Hct MCV MCH MCHC RDW Plt Count Neut % (Auto) Lymph % (Auto) [place] % (Auto) Eos % (Auto) Baso % (Auto) Neut # (Auto) Lymph # (Auto) [place] # (Auto) Eos # (Auto) Baso # (Auto) PT INR APTT D-Dimer Sodium 137 Potassium 4.7 Chloride 102 Carbon Dioxide 27 BUN 24 H Creatinine 1.00 Estimated GFR > 60.0 BUN/Creatinine Ratio 24.0 H Glucose 118 H Calcium 9.2 Magnesium 2.3 Total Bilirubin 0.7 AST 40 ALT 23 Alkaline Phosphatase 91 Total Creatine Kinase 86 CK-MB (CK-2) TNP CK-MB (CK-2) Rel Index TNP Troponin I < 0.012 NT-Pro-B Natriuret Pep 107 Total Protein 8.4 H Albumin 4.4 Globulin 4.0 Albumin/Globulin Ratio 1.1 Procalcitonin 0.06 Urine RBC Urine WBC Other Crystals Urine Bacteria Ur Culture Indicated? Assessment & Plan Assessment & Plan narrative: This is a 74-year-old active male experienced sudden onset of chest pain and is found to have bilateral pulmonary emboli and pneumonia. 1. Bilateral segmental and subsegmental mental pulmonary emboli, present on admission, active. -Patient with left-sided chest pain radiating to the left shoulder described as sudden Patterson and pleuritic in nature, -Patient with previous history of DVT left leg and has been taking aspirin 81 mg daily. -Strong family history of hypercoagulability with multiple family members having DVTs and PEs. Patient states he has been evaluated but unclear of results. -total CK is 86, troponin is less than 0.012 and proBNP is 107. -The patient has had marked pain rating his pain at 8/10, ordered Dresher 5-10 mg every 4 hours as needed, hydromorphone 1 mg every 4 hours as needed for breakthrough pain. -Ordered Lovenox 1 milligram/kilogram twice daily. -pulmonary emboli are unprovoked. Ordered Leiden factor V test. 2. Left middle and left lower lobe pneumonia, present on admission, active. Patient with left-sided chest pain radiating to the left shoulder described as sudden Patterson and pleuritic in nature. Chest x-ray finds left middle lobe and left lower lobe opacities consistent with pneumonia, chest CT described atelectasis versus bibasilar pneumonia. White blood cell count is 11.2, procalcitonin is 0.06 Ordered azithromycin 500 mg IV daily for 3 doses. Ordered ceftriaxone 2 g IV daily. Will follow Infectious indicators. VTE prophylaxis: Bilateral SCDs, therapeutic Lovenox IV fluid: Saline lock Diet: Heart healthy The patient is admitted to the hospital for chest pain related to pulmonary emboli and pneumonia. The patient is admitted as an inpatient with expected length of stay to be greater than 2 midnights. Scores GCS [place] coma scale eye opening: Spontaneous Bob coma scale verbal response: Orientated [place] coma scale motor response: Obey commands [place] coma scale total score: 15
--- NOTE | 2019-12-28 23:16 | PC.ADMIT ---
[address] [facility] Admission Note: The patient,Alejandro Arreola,74 y/o, was given written information regarding hospital policies, unit procedures and contact persons. Pt arrived from ED via w/c at approx 2240. Trans to bed. Steady on feet. A/O. RA sats 90%. Reports Left lung pain 6/10 with deep breathing. 2L NC applied sats increased to 96%. Oriented to room and call system. supportive at bedside. Patient's smoking status: Never smoker. Vital Signs - 8 hr 12/28/19 16:33 12/28/19 22:16 12/28/19 22:40 Temperature 97.6 F 98.9 F 98.5 F Pulse Rate 77 86 88 Respiratory Rate 16 18 20 Blood Pressure 173/85 H 148/81 H Blood Pressure [Left Arm] 155/79 H Pulse Oximetry 96 92 92
[2019-12-29] VITALS (8 sets, daily range): BP systolic 116–141; BP diastolic 71–89; PULSE 57–83; RESP 16–20; TEMP 35.9–37.6; O2SAT 92–97
[2019-12-29] MEDS: HYDROCODONE/ACET 5/325 TABLET 1 TAB PO ×2 (00:23→01:03)
[2019-12-29] MEDS: HYDROMORPHONE 2 MG INJ 1 MG IV ×2 (02:46→05:27)
--- NOTE | 2019-12-29 04:29 | PC.NURSE ---
Addendum entered by Rajiv Robin R.N. 12/29/19 06:33: Patient educated about the use of IS and is able to get to 1500. Patient stated pain level is now at 2/10. Addendum entered by Rajiv Robin R.N. 12/29/19 06:01: Respiratory Therapy initiated 5 liters O2, NC humidified air, Pt's O2 saturation 95%. Original Note: Patient alert and orientated, Patient Lung sounds clear bilaterally, but Dim in the bases. Patient has pain on inspiration 6/10, and was on 2 liters O2 [place] on admission. Patient's O2, saturation has dipped into high 80's and I bumped up his O2 to 4L. Telephoned Respiratory and asked him to come up to evaluate at 0425. Notified Jeffery HINES at 0425 that Patient's O2 sats were still low and he was still in quite a bit of pain and very uncomfortable. Jeffery ordered now dose of toradol 30mg and changed 1mg dilaudid order to Q3.
[2019-12-29] MEDS: KETOROLAC 30 MG/ML VIAL IV (05:26)
[2019-12-29] MEDS: CEFTRIAXONE 2 GM/50 ML FROZ.PIGGY IV (05:26)
[2019-12-29] MEDS: HYDROCODONE/ACET 5/325 TABLET 2 TAB PO (05:39)
[2019-12-29] MEDS: AZITHROMYCIN 500 MG in DEXTROSE 5% IN WATER 250 ML IV (06:24)
[2019-12-29 06:33] LABS: BUN Creatinine Ratio 20.9 (6-22); Blood Urea Nitrogen 23 mg/dL (9-20); Calcium 9.2 mg/dL (8.4-10.2); Carbon Dioxide 30 mmol/L (22-32); Chloride 103 mmol/L (98-107); Estimated Glomerular Filt Rate > 60.0 mL/min (>60); Glucose 118 mg/dL (80-110); HEMOLYSIS < 15 (0-50); Potassium 4.6 mmol/L (3.4-5.1); Sodium 137 mmol/L (137-145)
[2019-12-29 06:35] LABS: Add Manual Diff / Slide Review NO; Basophils Absolute Auto 0 /uL (0-100); Basophils Percent Auto 0.2 % (0-2); Eosinophils Absolute Auto 100 /uL (0-450); Hematocrit 43.9 % (41-53); Hemoglobin 14.8 g/dL (13.5-17.5); Lymphocytes Absolute Auto 2000 /uL (1100-4500); Lymphocytes Percent Auto 18.7 % (25-40); Mean Corpuscular HGB Conc 33.7 % (30-36); Mean Corpuscular Hemoglobin 32.4 PG (26-34); Mean Corpuscular Volume 96.2 fL (80-100); Monocytes Absolute Auto 1500 /uL (0-900); Monocytes Percent Auto 13.8 % (3-14); Neutrophils Absolute Auto 7000 /uL (1500-7000); Neutrophils Percent Auto 66.3 % (50-75); Platelet Count 213 X10^3/uL (150-400); Red Blood Cell Count 4.56 X10^6/uL (4.5-5.9); Red Cell Distribution Width 13.3 % (11.6-14.8); White Blood Cell Count 10.6 X10^3/uL (4.5-11.0)
[2019-12-29] MEDS: ONDANSETRON 4 MG/2 ML INJ IV (08:32)
--- NOTE | 2019-12-29 08:53 | PC.NURSE ---
Addendum entered by Gino Nieves R.N. 12/29/19 14:47: Patient remains alert and oriented this shift. Symptoms experienced as detailed in previous note not present after approx. 1100. Patient denies pain with breathing as of this time. Patient weaned from 5LPM of O2 to 3LPM over course of shift, sats mid 90s. SCDs remain in place. Original Note: 0840 - RN notified by [employer] that patient diaphoretic and with nausea, but reports that patient states symptoms came and went. RN in to assess patient, who reports onset of same symptoms again, with a sudden new fatigue. Patient denies any chest pain. Patient then self removed oxygen due to nausea and anticipation of vomiting for approx. 2 min. Zofran administered, oxygen replaced as patient desaturated to 87% on room air. Sats up to 95 on 4LPM. VS taken, HR 65, BP 116/73, temp 96.[address] [facility]. Desouza notified in person of change in patient condition, states she will assess patient at bedside. Care is ongoing.
--- NOTE | 2019-12-29 09:10 | PM.PN.1 ---
Subjective Subjective Date Patient Seen: 12/29/19 Interval history: 74 y/o man admitted for bilateral subsegmental PE's and Community Acquired Pneumonia. Patient contineus to have pleuritic pain. He developed nausea and fatigue earlier today. Patient reports not being able to sleep for the last few nights. After Zofran patient feels better. He remains hypoxic although on 4 liters instead of 5 liters of oxygen. Exam Vital Signs (past 8 hours): - 12/29/19 04:13 12/29/19 08:45 Temperature 96.9 F L Pulse Rate 81 65 Respiratory Rate 20 16 Blood Pressure 141/73 H 116/73 Pulse Oximetry 92 94 Oxygen Delivery Method Nasal Cannula Oxygen Flow Rate 4 Narrative Exam Narrative: ill appearing male, short of breath, pale Lungs: decreased breath sounds with bilateral bibasilar crackles CV: RRR nl Sl S2 ABd: soft/ non tender/non distended Ext: No edema Objective Labs Result Diagrams: 12/29/19 05:54 12/29/19 05:54 Labs: Laboratory Results - last 24 hr 12/28/19 12/28/19 12/28/19 19:42 20:15 20:15 WBC 11.2 H RBC 4.58 Hgb 15.0 Hct 43.4 MCV 94.7 MCH 32.8 MCHC 34.6 RDW 13.0 Plt Count 214 Neut % (Auto) 68.3 Lymph % (Auto) 17.4 L [place] % (Auto) 12.5 Eos % (Auto) 1.6 L Baso % (Auto) 0.2 Neut # (Auto) 7700 H Lymph # (Auto) 2000 [place] # (Auto) 1400 H Eos # (Auto) 200 Baso # (Auto) 0 PT 12.4 INR 1.1 APTT 27 D-Dimer 3716 H Sodium Potassium Chloride Carbon Dioxide BUN Creatinine Estimated GFR BUN/Creatinine Ratio Glucose Calcium Magnesium Total Bilirubin AST ALT Alkaline Phosphatase Total Creatine Kinase CK-MB (CK-2) CK-MB (CK-2) Rel Index Troponin I NT-Pro-B Natriuret Pep Total Protein Albumin Globulin Albumin/Globulin Ratio Procalcitonin Urine RBC 0-1/hpf Urine WBC 0-1/hpf Other Crystals Hippuric acid Urine Bacteria None seen Ur Culture Indicated? Cult not indicated 12/28/19 12/28/19 12/28/19 20:15 20:15 20:15 WBC RBC Hgb Hct MCV MCH MCHC RDW Plt Count Neut % (Auto) Lymph % (Auto) [place] % (Auto) Eos % (Auto) Baso % (Auto) Neut # (Auto) Lymph # (Auto) [place] # (Auto) Eos # (Auto) Baso # (Auto) PT INR APTT D-Dimer Sodium 137 Potassium 4.7 Chloride 102 Carbon Dioxide 27 BUN 24 H Creatinine 1.00 Estimated GFR > 60.0 BUN/Creatinine Ratio 24.0 H Glucose 118 H Calcium 9.2 Magnesium 2.3 Total Bilirubin 0.7 AST 40 ALT 23 Alkaline Phosphatase 91 Total Creatine Kinase 86 CK-MB (CK-2) TNP CK-MB (CK-2) Rel Index TNP Troponin I < 0.012 NT-Pro-B Natriuret Pep 107 Total Protein 8.4 H Albumin 4.4 Globulin 4.0 Albumin/Globulin Ratio 1.1 Procalcitonin 0.06 Urine RBC Urine WBC Other Crystals Urine Bacteria Ur Culture Indicated? 12/29/19 12/29/19 05:54 05:54 WBC 10.6 RBC 4.56 Hgb 14.8 Hct 43.9 MCV 96.2 MCH 32.4 MCHC 33.7 RDW 13.3 Plt Count 213 Neut % (Auto) 66.3 Lymph % (Auto) 18.7 L [place] % (Auto) 13.8 Eos % (Auto) 1.0 L Baso % (Auto) 0.2 Neut # (Auto) 7000 Lymph # (Auto) 2000 [place] # (Auto) 1500 H Eos # (Auto) 100 Baso # (Auto) 0 PT INR APTT D-Dimer Sodium 137 Potassium 4.6 Chloride 103 Carbon Dioxide 30 BUN 23 H Creatinine 1.10 Estimated GFR > 60.0 BUN/Creatinine Ratio 20.9 Glucose 118 H Calcium 9.2 Magnesium Total Bilirubin AST ALT Alkaline Phosphatase Total Creatine Kinase CK-MB (CK-2) CK-MB (CK-2) Rel Index Troponin I NT-Pro-B Natriuret Pep Total Protein Albumin Globulin Albumin/Globulin Ratio Procalcitonin Urine RBC Urine WBC Other Crystals Urine Bacteria Ur Culture Indicated? Assessment & Plan Assessment & Plan narrative: 1. Acute Hypoxic REspiratory Failure -multifactorial secondary to Bilateral Pulmonary Emboli and Pneumonia -patient continues to require high dose oxygen -reports fatigue and nausea -continue oxygen for symptomatic hypoxia -will check EKG/Troponins 2. Bilateral Subsegmental PE -likely family history of hypercoagulabiilty -Factor 5 Leiden sent -needs complete hematologic work up which can be completed as an outpatient -Continue BID lovenox, can switch to oral anticogulant at discharge ( xeralto) 3. Community Acquired Pneumonia -likely contributing to Hypoxia -CT Scan and Chest Xray confirms -Physical Exam consistent as well -Continue Azithromycin/Ceftriaxone -Will check respiratory panel 4. Nausea/Fatigue -likely related to narcotics and underlying illness -d/c narcotics -ultram, prn tordol if needed Patient is very ill and will need to remain hospitalized until no longer hypoxic at the bedside, questions answered.
[2019-12-29] MEDS: ENOXAPARIN 60 MG/0.6 ML SYRINGE 105 MG SUBCUT ×2 (09:31→20:45)
[2019-12-29 10:25] LABS: Troponin I < 0.012 ng/mL (0.01-0.034)
--- NOTE | 2019-12-29 13:55 | CM.DANOTE ---
Discharge Planning/Care Management DCP: assessment: case received, EMR reviewed and met with pt and his Darwin during Bedside Team Rounds. Introduced self and role. Pt is a 74 year old male who admitted to care of hospitalist team last night. PCP: Pablo Mejia: [facility] Payer: Medicare and [employer] Admission status: INPT: confirmed by UR CHANELLE Grant. Pt is admitted for bilateral PEs and community acquired pneumonia. Dr. Desouza notes that pt remains hypoxic on 4 L o2. She states to pt, Darwin and team that pt will need to continue hospital level care until he is able to be completely off the oxygen. DCP team will be following as POC unfolds. Anticipate d/c to home setting when stable for same but pt currently appears quite ill. Advanced directive, confirm from CLINIC Start: 12/28/19 23:03 Freq: Q24H Status: Active Protocol: Document 12/29/19 07:00 (Rec: 12/29/19 13:39 SL [id number]) Advance Directive, confirm on record Time 09:00 Person contacted Spouse Copy received No CM Discharge Assessment Start: 12/29/19 13:53 Freq: Status: Active Protocol: Document 12/29/19 13:54 ITV (Rec: 12/29/19 13:54 ITV [id number]) Discharge Planning Assessment Advance Directives? Yes History Provided By Patient,Family Member,Medical Record Prior Living Arrangements House Household Members spouse Independent with ADL's Yes Is patient alert and oriented? Yes White board Updated in Patient Room with Yes name and ext. # of Tube Carrier Review Status In Process
[2019-12-29] MEDS: DOCUSATE 100 MG CAPSULE PO (19:31)
[2019-12-29] MEDS: ACETAMINOPHEN 325 MG TABLET 650 MG PO (19:31)
[2019-12-29] MEDS: TRAMADOL 50 MG TABLET PO (20:54)
[2019-12-29 23:42] LABS: Adenovirus Not Detected (Not Detect); Bordetella pertussis Not Detected (Not Detect); Chlamydophila pneumoniae Not Detected (Not Detect); Coronavirus 229E Not Detected (Not Detect); Coronavirus HKU1 Not Detected (Not Detect); Coronavirus NL 63 Not Detected (Not Detect); Coronavirus OC43 Not Detected (Not Detect); Human Metapneumovirus Not Detected (Not Detect); Human Rhinovirus/Enterovirus Not Detected (Not Detect); Influenza A Not Detected (Not Detect); Influenza B Not Detected (Not Detect); Mycoplasma pneumoniae Not Detected (Not Detect); Parainfluenza Virus 1 Not Detected (Not Detect); Parainfluenza Virus 2 Not Detected (Not Detect); Parainfluenza Virus 3 Not Detected (Not Detect); Parainfluenza Virus 4 Not Detected (Not Detect); Respiratory Syncytial Virus Not Detected (Not Detect)
[2019-12-30] VITALS (9 sets, daily range): BP systolic 104–142; BP diastolic 53–82; PULSE 69–80; RESP 16–18; TEMP 36.5–37.9; O2SAT 91–97
[2019-12-30] MEDS: ACETAMINOPHEN 325 MG TABLET 650 MG PO ×2 (03:39→14:36)
[2019-12-30] MEDS: TRAMADOL 50 MG TABLET PO (05:00)
[2019-12-30] MEDS: CEFTRIAXONE 2 GM/50 ML FROZ.PIGGY IV (05:02)
[2019-12-30] MEDS: AZITHROMYCIN 500 MG in DEXTROSE 5% IN WATER 250 ML IV (06:13)
[2019-12-30] MEDS: ENOXAPARIN 60 MG/0.6 ML SYRINGE 105 MG SUBCUT (09:07)
--- NOTE | 2019-12-30 12:34 | CM.DPC ---
DCP: continued: met again in Bedside Team Rounds with pt, his Darwin and then joined by their daughter who manages the Infectious Disease program at the . Dr. Desouza noted pt's improvement. He is now on 3 L o2 and at time of rounds seems to do ok lying in bed when o2 is turned off. Dr. Desouza requests that pt be checked for o2 need when he is up and moving. She again confirms that her primary marker of pt's medical readiness to leave hospital setting will be when he is able to manage without the oxygen. Pt says he is still coughing up some bloody sputum and that he does continue to have some pain. Dr. Desouza discussed medication changes for this. Pt is giving himself his Lovenox injections. P: remains home when stable for same. Family and patient were given time by Dr. Desouza to have their questions and concerns re pt's medical conditions addressed and expressed thankfulness for same.
[2019-12-30] MEDS: TRAMADOL 50 MG TABLET 100 MG PO ×2 (14:35→20:34)
--- NOTE | 2019-12-30 17:27 | PM.PN.1 ---
Subjective Subjective Date Patient Seen: 12/30/19 Interval history: Patient is a 74-year-old male admitted to the hospital with bilateral pulmonary emboli in addition to community-acquired pneumonia. Patient had some nausea yesterday which seem to be related to Dilaudid. He is now on Ultram which has helped his nausea. The patient does report continued pain with coughing. He has had some occasional hemoptysis as well. Exam Vital Signs (past 8 hours): - 12/30/19 11:44 12/30/19 14:36 12/30/19 16:19 Temperature 98.1 F 100.2 F H 98.2 F Pulse Rate 78 74 Respiratory Rate 16 18 Blood Pressure 110/65 104/59 L Pulse Oximetry 92 91 Oxygen Delivery Method Nasal Cannula Oxygen Flow Rate 0 Narrative Exam Narrative: Pleasant male lying in bed in no obvious distress Lungs: Clear to auscultation Cardiac exam: Regular rate and rhythm normal S1-S2 Abdomen: Soft nontender nondistended Extremities: No edema Objective Labs Result Diagrams: 12/29/19 05:54 12/29/19 05:54 Labs: Laboratory Results - last 24 hr 12/29/19 22:20 Chlamy pneumoniae PCR Not detected Adenovirus (PCR) Not detected B.parapertussis DNA PCR Not detected Coronavirus OC43 (PCR) Not detected Coronavirus HKU1 (PCR) Not detected Coronavirus 229E (PCR) Not detected Coronavirus NL63 (PCR) Not detected Human Metapneumovir PCR Not detected Influenza Type A (PCR) Not detected Influenza Type B (PCR) Not detected M. pneumoniae (PCR) Not detected Parainfluenza 1 (PCR) Not detected Parainfluenza 2 (PCR) Not detected Parainfluenza 3 (PCR) Not detected Parainfluenza 4 (PCR) Not detected RSV (PCR) Not detected Entero/Rhino (PCR) Not detected Assessment & Plan Assessment & Plan narrative: Assessment & Plan narrative: 1. Acute Hypoxic REspiratory Failure -multifactorial secondary to Bilateral Pulmonary Emboli and Pneumonia -oxygenation improved today -room air sat 93% * will check exercise saturation 2. Bilateral Subsegmental PE -likely family history of hypercoagulabiilty -Factor 5 Leiden sent -needs complete hematologic work up which can be completed as an outpatient -Continue BID lovenox, can switch to oral anticogulant at discharge ( xeralto) -start Xarelto, discontinue Lovenox 3. Community Acquired Pneumonia -likely contributing to Hypoxia -CT Scan and Chest Xray confirms -Physical Exam consistent as well -Continue Azithromycin/Ceftriaxone -Will check respiratory panel, negative 4. Nausea/Fatigue Resume Anticipate discharge home when hypoxia resolved
[2019-12-30] MEDS: DOCUSATE 100 MG CAPSULE PO (20:34)
[2019-12-31 03:43] VITALS: BP 110/62; PULSE 69; RESP 18; TEMP 37.5; O2SAT 93
--- NOTE | 2019-12-31 06:45 | PC.NURSE ---
Patient has no complaints of pain this shift. Continues to be on 1 liter humidified air at 96%. Lung sounds clear.
[2019-12-31 07:20] VITALS: BP 129/67; PULSE 72; RESP 18; TEMP 36.5; O2SAT 94
[2019-12-31] MEDS: RIVAROXABAN 10 MG TABLET 15 MG PO (09:29)
[2019-12-31] MEDS: TRAMADOL 50 MG TABLET 100 MG PO (09:29)
[2019-12-31] MEDS: levoFLOXacin 250 MG TABLET 750 MG PO (09:30)
[2019-12-31 10:22] VITALS: O2SAT 93
--- NOTE | 2019-12-31 11:18 | RT ---
Exercise oximetry test conducted. O2 sats at rest, room air: 96% O2 sat with ambulation, room air: 90%. Informed patient's nurse and Dr. Desouza.
--- NOTE | 2019-12-31 11:20 | P.DS_ITS ---
History of Present Illness History of Present Illness Date Patient Seen: 12/31/19 Chief complaint: LT LOWER PAIN AND LT SHOULDER PAIN COUGH UP BLOOD Narrative: Mr. Alejandro Waggoner is a 74-year-old male who with a history significant for prior DVT of the right leg with a familial history of DVT, varicose veins and L4-5 back pain who presents to the ER with complaints of sudden onset left-sided chest pain. Patient was in his usual state health in participating in [employer] class after which he developed a sudden onset left-sided chest pain radiating to the left shoulder this afternoon. He describes the pain as pleuritic in nature worsening with deep inspiration and with movement. He describes associated shortness of breath and difficulty taking a full breath related to the pain and has had an episode hemoptysis. Patient has had a prior DVT that was unprovoked and reports having been evaluated for familial linked hypercoagulable syndromes but does not recall if he had Leiden factor 5 evaluated. Patient has no current risk factors or precipitating events. Reports no recent fevers or chills, headaches and dizziness, nasal congestion or sore throat. He has chest pain as above with associated shortness of breath but denies cough or wheezing. He denies heartburn, nausea or vomiting but describes a discomfort in the right upper quadrant of his abdomen that is non palpable reproducible. He reports no changes in bowel or bladder habits. He is normally active and fully independent in all ADLs. Upon arrival the ER the patient's Tommy febrile with temperature 97.6?, heart rate of 77, blood pressure of 173/85, respirations 16 saturating 96%. On EKG the patient has a sinus rhythm with a ventricular rate of 77 without ectopy or block and no ST or T-wave changes. The patient underwent a chest CT with contrast which finds bibasilar atelectasis versus pneumonia pneumonia in feeling deficits of bilateral segmental and subsegmental pulmonary artery branches left greater than right. A chest x-ray is obtained which finds left middle lobe and lower lobe opacities consistent with pneumonia. On laboratory analysis the patient has a white count of 11.2, hemoglobin 15, hematocrit 43.4 and platelets of 214. A coagulation has a PT of 12 point, INR 0.1 and PTT of 27. He has an elevated D- dimer 3716. His electrolytes are within normal limits he has a BUN of 24 and a creatinine 1.0. His LFTs are within normal limits and has a magnesium of 2.3. His total CK is 86 has a troponin of less than 0.012. His proBNP is 107. Procalcitonin is 0.06. In the ER the patient is started on Lovenox 1 milligram/kilogram and is admitted for bilateral PE and left lung pneumonia. Discharge Providers Provider Date of admission: 12/28/19 22:25 Discharge Date: 12/31/19 Consults: 12/28/19 23:11 Consult to Discharge Planning Routine Comment: 12/28/19 23:13 Consult to Respiratory Therapy Evaluate & Treat Comment: Bilateral PE, left lung pneumonia Physician Instructions: Evaluate and treat Discharge provider: Shahnaz Desouza MD Summary Hospital Course Discharge Diagnosis: 1. Acute respiratory failure secondary to 2. Bilateral pulmonary emboli 3. Pneumonia 4. History of DVT 5. Back pain 6. GERD Hospital Course: Patient was admitted to the hospital for treatment of acute r espiratory failure felt to be secondary to bilateral pulmonary emboli and pneumonia. Patient was initially treated with IV ceftriaxone and azithromycin. He was placed on Lovenox 105 5 milligrams/kilogram twice daily. Patient had significant hypoxia. He required up to 5 L of oxygen to improve his oxygenation. He had significant splinting and pleuritic pain. He required pain medication for that. He ultimately was able to be weaned off the oxygen. He had no further cough. His pain control was improved with Ultram. Patient was able to ambulate in his room air sat was 94% at rest. With ambulation his room air sat dropped to 89 90% but quickly recovered. Patient will complete 2 additional days of antibiotics. He will be discharged home on Xarelto. He will follow-up with his primary care provider next week for further evaluation. Status at Discharge Cognitive/behavioral status at discharge: oriented Functional status at discharge: independent ambulation Overall status at discharge: patient is back to baseline Time Spent with Patient Time spent: Less than 30 minutes Exam Vital Signs (past 8 hours): - 12/31/19 03:43 12/31/19 07:20 12/31/19 10:22 Temperature 99.5 F 97.7 F Pulse Rate 69 72 Respiratory Rate 18 18 Blood Pressure 110/62 129/67 Pulse Oximetry 93 94 93 Oxygen Delivery Method Room Air Oxygen Flow Rate 0 Narrative Exam Narrative: Pleasant gentleman in no obvious distress Lungs: Decreased breath sounds with scattered rhonchi at the bases bilaterally Cardiac exam: Regular rate and rhythm normal S1-S2 Abdomen: Soft nontender nondistended Extremities: No edema Objective Labs Result Diagrams: 12/29/19 05:54 12/29/19 05:54 Labs: Laboratory Results - last 24 hr 12/30/19 06:13 Factor V Leiden Interp Cancelled Discharge Plan Discharge Plan Patient Disposition: Home Discharge orders & Medications Prescriptions: New tramadol 50 mg Tablet 100 mg PO TID PRN (Reason: Pain, Moderate (4-6)) 5 Days RF: 0 levofloxacin 250 mg Tablet 750 mg PO DAILY 2 Days RF: 0 Xarelto 10 mg Tablet 15 mg PO BIDWM 21 Days Qty: 31.5 RF: 0 Continued omeprazole 20 mg capsule,delayed release(DR/EC) 20 mg PO DAILY RF: 0 Discontinued aspirin 81 mg Tablet,Delayed Release (Dr/Ec) 243 mg PO DAILY RF: 0 Diet/Activity/Treatments Diet: Diet as Tolerated Activity: as tolerated
--- NOTE | 2019-12-31 12:09 | CM.DPC ---
DCP Cont: Patient is to be discharged home today. Dr. Desouza brought in an prescription for Xarelto and insurance card, and asked to have pharmacy run it through. Radha, career and guidance counselor, went ahead and faxed information over to [facility]. He will have to initially meet his deductable, and will have to pay approximately $400.00. Patient is aware. Radha also had pharmacy run through his [facility], as well. P: Patient is to be discharged home today. Shannon Lopez RN/Operations Agent
--- NOTE | 2019-12-31 13:11 | CM.MNRNOTE ---
Discharge Pt states he has pain in L side and a LANDA this AM, gave pt tramadol and this helped decrease his pain. D/c instructions provided to pt and his . Questions answered for both pt and his regarding d/c. Aware to f/u with PCP this week and to contact PCP with any additional questions or concerns. Pt received note from MD perez: jury duty per his request. Pt took all belongings with him. Left in w/c with [employer] escort to car with his .
== END 2019-12-31 13:05 | disposition home or self-care (01) | DRG 193 ==
LOC: ED 22:23 → AC 12-29 12:40
PROVIDERS: Internal Medicine; Admitting Provider Nurse Practitioner Adult Health; Emergency Provider Nurse Practitioner Family; Visit Provider Nurse Practitioner Adult Health
DX: J18.9 Pneumonia, unspecified organism (principal); J96.01 Acute respiratory failure with hypoxia; I26.94 Multiple subsegmental thrombotic pulmonary emboli without acute cor pulmonale; K21.9 Gastro-esophageal reflux disease without esophagitis; M54.9 Dorsalgia, unspecified; R11.0 Nausea; Z86.718 Personal history of other venous thrombosis and embolism
CPT/HCPCS: 36415; 71046; 71250; 80048; 80053; 81003; 81015; 81241; 82550; 83735; 83880; 84145; 84484; 85025; 85379; 85610; 85730; 87633; 93005; 93010; 93306; 94618; 94760; 94762; 96372; 99284; 99285; J0696; J1170; J1650; J1885; J2405

== ENCOUNTER → 2021-05-07 16:14 | Outpatient (CLI) | payer MEDICARE, OTHER, SELFPAY ==
[2020-05-14 14:26] VITALS: BMI 32.8
--- NOTE | 2021-05-07 16:15 | DI.RAD.S_ITS ---
PROCEDURE: XR THORACIC SPINE 3V INDICATIONS: back pain TECHNIQUE: 3 views of the thoracic spine were acquired. COMPARISON: None. FINDINGS: Bones: No fractures or dislocations. No suspicious bony lesions. Moderate degenerative endplate changes are noted throughout mid to lower thoracic spine. 12 pairs of ribs are noted, and appear intact where visualized. Soft tissues: No paravertebral stripe thickening. 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 No acute fracture or dislocation. Dictated by: Ean Reza M.D. on 05/08/2021 at 9:26 Approved by: Ean Reza M.D. on 05/08/2021 at 9:26
== END ==
PROVIDERS: PCP Registered Nurse Diabetes Educator; Referring Provider Registered Nurse; Visit Provider Registered Nurse
DX: M54.9 Dorsalgia, unspecified (principal); M51.34 Other intervertebral disc degeneration, thoracic region
CPT/HCPCS: 72072

== ENCOUNTER → 2021-05-28 08:29 | Outpatient (CLI) | payer MEDICARE, OTHER, SELFPAY ==
[2020-05-14 14:26] VITALS: BMI 32.8
[2021-05-28 09:06] LABS: COVID19 -Nasal RAPID Negative (Negative)
== END ==
PROVIDERS: PCP Registered Nurse Diabetes Educator; Visit Provider Registered Nurse Diabetes Educator
DX: J02.9 Acute pharyngitis, unspecified (principal); R51.9 Headache, unspecified; Z20.822 Contact with and (suspected) exposure to COVID-19
CPT/HCPCS: 87635

== ENCOUNTER → 2021-10-29 11:01 | Outpatient (CLI) | payer MEDICARE, OTHER, SELFPAY ==
[2020-05-14 14:26] VITALS: BMI 32.8
[2021-10-29 11:29] LABS: Add Manual Diff / Slide Review NO; Basophils Absolute Auto 0 /uL (0-100); Basophils Percent Auto 0.7 % (0-2); Eosinophils Absolute Auto 200 /uL (0-450); Eosinophils Percent Auto 2.3 % (2-4); Hematocrit 44.4 % (41-53); Hemoglobin 15.3 g/dL (13.5-17.5); Lymphocytes Absolute Auto 2200 /uL (1100-4500); Lymphocytes Percent Auto 33.7 % (25-40); Mean Corpuscular HGB Conc 34.5 % (30-36); Mean Corpuscular Hemoglobin 32.1 PG (26-34); Mean Corpuscular Volume 92.9 fL (80-100); Monocytes Absolute Auto 800 /uL (0-900); Monocytes Percent Auto 12.3 % (3-14); Neutrophils Absolute Auto 3300 /uL (1500-7000); Platelet Count 227 X10^3/uL (150-400); Red Blood Cell Count 4.78 X10^6/uL (4.5-5.9); Red Cell Distribution Width 13.1 % (11.6-14.8); White Blood Cell Count 6.4 X10^3/uL (4.5-11.0)
[2021-10-29 11:48] LABS: Alanine Aminotransferase 27 IU/L (<50); Albumin 4.1 g/dL (3.5-5.0); Albumin Globulin Ratio 1.1 (1.0-2.8); Alkaline Phosphatase 93 U/L (38-126); Aspartate Aminotransferase 34 IU/L (17-59); BUN Creatinine Ratio 17.5 (6-22); Bilirubin Total 0.5 mg/dL (0.2-1.3); Blood Urea Nitrogen 20 mg/dL (9-20); Calcium 9.5 mg/dL (8.4-10.2); Carbon Dioxide 33 mmol/L (22-32); Chloride 103 mmol/L (98-107); Estimated Glomerular Filt Rate > 60.0 mL/min (>60); Globulin 3.6 g/dL (1.7-4.1); Glucose 103 mg/dL (80-110); HEMOLYSIS < 15 (0-50); Potassium 4.4 mmol/L (3.4-5.1); Sodium 139 mmol/L (137-145); Total Protein 7.7 g/dL (6.3-8.2)
[2021-10-29 12:00] LABS: D Dimer 1511 ng/mL (<230)
[2021-10-29 12:34] LABS: Cholesterol 196 mg/dL (140-199); Glucose 100 mg/dL (80-110); HDL Cholesterol 35 mg/dL (40-60); LDL Cholesterol Calculated 135 mg/dL (<100); Triglycerides 128 mg/dL (35-150)
== END ==
PROVIDERS: Internal Medicine Hematology & Oncology; PCP Registered Nurse Diabetes Educator; Referring Provider Registered Nurse Diabetes Educator; Visit Provider Registered Nurse Diabetes Educator
DX: E78.5 Hyperlipidemia, unspecified (principal); R03.0 Elevated blood-pressure reading, without diagnosis of hypertension; Z86.711 Personal history of pulmonary embolism
CPT/HCPCS: 36415; 80053; 80061; 82947; 84443; 85025; 85379

== ENCOUNTER → 2021-11-04 11:50 | Outpatient (CLI) | payer MEDICARE, OTHER, SELFPAY ==
[2020-05-14 14:26] VITALS: BMI 32.8
[2021-11-04 13:58] LABS: Cholesterol 193 mg/dL (140-199); HDL Cholesterol 34 mg/dL (40-60); LDL Cholesterol Calculated 137 mg/dL (<100); Magnesium 2.1 mg/dL (1.6-2.3); Triglycerides 112 mg/dL (35-150)
[2021-11-04 14:23] LABS: Thyroid Stimulating Hormone 2.17 uIU/mL (0.47-4.68)
== END ==
PROVIDERS: PCP Registered Nurse Diabetes Educator; Referring Provider Internal Medicine Cardiovascular Disease; Visit Provider Internal Medicine Cardiovascular Disease
DX: R03.0 Elevated blood-pressure reading, without diagnosis of hypertension (principal); E78.5 Hyperlipidemia, unspecified; R00.2 Palpitations; I70.90 Unspecified atherosclerosis
CPT/HCPCS: 36415; 80061; 83735; 84443

== ENCOUNTER → 2021-11-10 14:58 | Outpatient (CLI) | payer MEDICARE, OTHER, SELFPAY ==
[2020-05-14 14:26] VITALS: BMI 32.8
--- NOTE | 2021-11-10 15:00 | DI.RAD.S_ITS ---
PROCEDURE: XR CHEST 2V INDICATIONS: eval intermittent CP TECHNIQUE: 2 views of the chest were acquired. COMPARISON: None. FINDINGS: Surgical changes and devices: None. Lungs and pleura: Lungs are clear. No pleural effusions or pneumothorax. Mediastinum: Mediastinal contours are normal. Heart size is normal. Bones and chest wall: No suspicious bony abnormalities. Soft tissues appear unremarkable. IMPRESSION: No acute pulmonary process. Dictated by: Silva Barnett M.D. on 11/10/2021 at 17:49 Approved by: Silva Barnett M.D. on 11/10/2021 at 17:49
[2021-11-10 17:14] LABS: Prostate Specific Antigen 3.19 ng/mL (0.10-4.00)
== END ==
PROVIDERS: PCP Registered Nurse Diabetes Educator; Referring Provider Registered Nurse Diabetes Educator; Visit Provider Registered Nurse Diabetes Educator
DX: E11.9 Type 2 diabetes mellitus without complications (principal); R05.3 Chronic cough; R07.89 Other chest pain; Z80.42 Family history of malignant neoplasm of prostate
CPT/HCPCS: 36415; 71046; 84153

== ENCOUNTER → 2022-02-26 11:32 | Outpatient (CLI) | payer MEDICARE, OTHER, SELFPAY ==
[2020-05-14 14:26] VITALS: BMI 32.8
[2022-02-26 12:58] LABS: Prostate Specific Antigen 2.27 ng/mL (0.10-4.00)
== END ==
PROVIDERS: PCP Registered Nurse Diabetes Educator; Referring Provider Urology; Visit Provider Urology
DX: R97.20 Elevated prostate specific antigen [PSA] (principal)
CPT/HCPCS: 36415; 84153

== ENCOUNTER → 2022-11-19 14:51 | Outpatient (CLI) | payer MEDICARE, OTHER, SELFPAY ==
[2020-05-14 14:26] VITALS: BMI 32.8
[2022-11-19 15:14] LABS: Add Manual Diff / Slide Review NO; Basophils Absolute Auto 0 /uL (0-100); Basophils Percent Auto 0.4 % (0-2); Eosinophils Absolute Auto 200 /uL (0-450); Eosinophils Percent Auto 1.9 % (2-4); Hemoglobin 14.4 g/dL (13.5-17.5); Lymphocytes Absolute Auto 2400 /uL (1100-4500); Lymphocytes Percent Auto 27.1 % (25-40); Mean Corpuscular HGB Conc 33.6 % (30-36); Mean Corpuscular Hemoglobin 32.3 PG (26-34); Monocytes Absolute Auto 1000 /uL (0-900); Monocytes Percent Auto 11.3 % (3-14); Neutrophils Absolute Auto 5300 /uL (1500-7000); Neutrophils Percent Auto 59.3 % (50-75); Platelet Count 220 X10^3/uL (150-400); Red Blood Cell Count 4.48 X10^6/uL (4.5-5.9); White Blood Cell Count 8.9 X10^3/uL (4.5-11.0)
[2022-11-19 15:17] LABS: D Dimer 328 ng/ml (<500)
[2022-11-19 15:21] LABS: Alanine Aminotransferase 28 IU/L (<50); Albumin Globulin Ratio 1.1 (1.0-2.8); Alkaline Phosphatase 92 U/L (38-126); Aspartate Aminotransferase 30 IU/L (17-59); BUN Creatinine Ratio 20.2 (6-22); Bilirubin Total 0.5 mg/dL (0.2-1.3); Blood Urea Nitrogen 22 mg/dL (9-20); Calcium 9.1 mg/dL (8.4-10.2); Carbon Dioxide 28 mmol/L (22-32); Chloride 104 mmol/L (98-107); Estimated Glomerular Filt Rate > 60 mL/min (>60); Globulin 3.8 g/dL (1.7-4.1); Glucose 110 mg/dL (80-110); HEMOLYSIS < 15 (0-50); Sodium 140 mmol/L (137-145); Total Protein 7.8 g/dL (6.3-8.2)
[2022-11-19 16:37] LABS: Prostate Specific Antigen 2.65 ng/mL (0.10-4.00)
== END ==
PROVIDERS: Internal Medicine Hematology & Oncology; PCP Registered Nurse Diabetes Educator; Referring Provider Urology; Visit Provider Urology
DX: R97.20 Elevated prostate specific antigen [PSA] (principal); I26.99 Other pulmonary embolism without acute cor pulmonale
CPT/HCPCS: 36415; 80053; 84153; 85025; 85379

== ENCOUNTER → 2023-01-27 08:09 | Outpatient (CLI) | payer MEDICARE, OTHER, SELFPAY ==
[2020-05-14 14:26] VITALS: BMI 32.8
[2023-01-27 10:27] LABS: Alanine Aminotransferase 27 IU/L (<50); Albumin 3.8 g/dL (3.5-5.0); Albumin Globulin Ratio 1.2 (1.0-2.8); Alkaline Phosphatase 116 U/L (38-126); Aspartate Aminotransferase 27 IU/L (17-59); BUN Creatinine Ratio 18.5 (6-22); Bilirubin Total 0.7 mg/dL (0.2-1.3); Blood Urea Nitrogen 20 mg/dL (9-20); Calcium 8.9 mg/dL (8.4-10.2); Carbon Dioxide 31 mmol/L (22-32); Chloride 101 mmol/L (98-107); Cholesterol 108 mg/dL (140-199); Estimated Glomerular Filt Rate > 60 mL/min (>60); Globulin 3.1 g/dL (1.7-4.1); Glucose 89 mg/dL (80-110); HDL Cholesterol 36 mg/dL (40-60); HEMOLYSIS < 15 (0-50); LDL Cholesterol Calculated 56 mg/dL (<100); Potassium 5.3 mmol/L (3.4-5.1); Sodium 137 mmol/L (137-145); Total Protein 6.9 g/dL (6.3-8.2); Triglycerides 78 mg/dL (35-150)
== END ==
PROVIDERS: PCP Registered Nurse Diabetes Educator; Referring Provider Internal Medicine Cardiovascular Disease; Visit Provider Internal Medicine Cardiovascular Disease
DX: E78.5 Hyperlipidemia, unspecified (principal)
CPT/HCPCS: 36415; 80053; 80061

== ENCOUNTER → 2023-02-03 09:37 | Outpatient (CLI) | payer MEDICARE, OTHER, SELFPAY ==
[2020-05-14 14:26] VITALS: BMI 32.8
[2023-02-03 11:40] LABS: Alanine Aminotransferase 26 IU/L (<50); Albumin 3.8 g/dL (3.5-5.0); Albumin Globulin Ratio 1.2 (1.0-2.8); Alkaline Phosphatase 101 U/L (38-126); Aspartate Aminotransferase 27 IU/L (17-59); Bilirubin Total 0.8 mg/dL (0.2-1.3); Blood Urea Nitrogen 22 mg/dL (9-20); Calcium 9.4 mg/dL (8.4-10.2); Carbon Dioxide 30 mmol/L (22-32); Chloride 103 mmol/L (98-107); Cholesterol 123 mg/dL (140-199); Estimated Glomerular Filt Rate > 60 mL/min (>60); Globulin 3.3 g/dL (1.7-4.1); Glucose 91 mg/dL (80-110); HDL Cholesterol 37 mg/dL (40-60); HEMOLYSIS < 15 (0-50); LDL Cholesterol Calculated 68 mg/dL (<100); Potassium 4.9 mmol/L (3.4-5.1); Sodium 138 mmol/L (137-145); Total Protein 7.1 g/dL (6.3-8.2); Triglycerides 90 mg/dL (35-150)
== END ==
PROVIDERS: PCP Registered Nurse Diabetes Educator; Referring Provider Internal Medicine Cardiovascular Disease; Visit Provider Internal Medicine Cardiovascular Disease
DX: E78.5 Hyperlipidemia, unspecified (principal)
CPT/HCPCS: 36415; 80053; 80061

== ENCOUNTER → 2024-03-13 10:53 | Outpatient (CLI) | payer MEDICARE, OTHER, SELFPAY ==
[2020-05-14 14:26] VITALS: BMI 32.8
[2024-03-13 14:01] LABS: D Dimer 560 ng/ml (<500)
== END ==
PROVIDERS: PCP Registered Nurse Diabetes Educator; Referring Provider Internal Medicine Hematology & Oncology; Visit Provider Internal Medicine Hematology & Oncology
DX: I26.99 Other pulmonary embolism without acute cor pulmonale (principal)
CPT/HCPCS: 36415; 85379

== ENCOUNTER → 2024-07-11 10:38 | Outpatient (CLI) | payer MEDICARE, OTHER, SELFPAY ==
[2020-05-14 14:26] VITALS: BMI 32.8
[2024-07-11 14:45] LABS: Add Manual Diff / Slide Review NO; Basophils Absolute Auto 0 /uL (0-100); Basophils Percent Auto 0.4 % (0-2); Eosinophils Absolute Auto 200 /uL (0-450); Eosinophils Percent Auto 2.8 % (2-4); Hematocrit 40.7 % (41-53); Hemoglobin 14.1 g/dL (13.5-17.5); Lymphocytes Absolute Auto 2100 /uL (1100-4500); Lymphocytes Percent Auto 31.3 % (25-40); Mean Corpuscular HGB Conc 34.6 % (30-36); Mean Corpuscular Hemoglobin 33.1 PG (26-34); Mean Corpuscular Volume 95.6 fL (80-100); Monocytes Absolute Auto 800 /uL (0-900); Monocytes Percent Auto 12.4 % (3-14); Neutrophils Absolute Auto 3600 /uL (1500-7000); Neutrophils Percent Auto 53.1 % (50-75); Platelet Count 214 X10^3/uL (150-400); Red Blood Cell Count 4.25 X10^6/uL (4.5-5.9); White Blood Cell Count 6.8 X10^3/uL (4.5-11.0)
[2024-07-11 14:57] LABS: D Dimer 271 ng/ml (<500)
[2024-07-11 15:02] LABS: Alanine Aminotransferase 29 IU/L (<50); Albumin Globulin Ratio 1.3 (1.0-2.8); Alkaline Phosphatase 94 U/L (38-126); Aspartate Aminotransferase 49 IU/L (17-59); BUN Creatinine Ratio 24.7 (6-22); Bilirubin Total 0.6 mg/dL (0.2-1.3); Blood Urea Nitrogen 24 mg/dL (9-20); Calcium 8.9 mg/dL (8.4-10.2); Carbon Dioxide 28 mmol/L (22-32); Chloride 104 mmol/L (98-107); Estimated Glomerular Filt Rate > 60 mL/min (>60); Glucose 101 mg/dL (80-110); HEMOLYSIS < 15 (0-50); Potassium 4.3 mmol/L (3.4-5.1); Sodium 139 mmol/L (137-145)
== END ==
PROVIDERS: PCP Registered Nurse Diabetes Educator; Referring Provider Internal Medicine Hematology & Oncology; Visit Provider Internal Medicine Hematology & Oncology
DX: I26.99 Other pulmonary embolism without acute cor pulmonale (principal)
CPT/HCPCS: 36415; 80053; 85025; 85379

== ENCOUNTER → 2025-05-20 09:15 | Outpatient (CLI) | payer MEDICARE, OTHER, SELFPAY ==
[2020-05-14 14:26] VITALS: BMI 32.8
--- NOTE | 2025-05-20 09:18 | DI.RAD.S_ITS ---
PROCEDURE: XR LUMBAR SPINE MIN 4V INDICATIONS: eval R hip and low back pain TECHNIQUE: 5 views of the lumbar spine were acquired, including bilateral oblique views. COMPARISON: [facility], CR, XR HIP W PEL RT 2V, 05/20/2025, 9:32. [facility], CT, CT ANGIO CHEST, 01/06/2024, 14:11. FINDINGS: Bones: 5 nonrib-bearing vertebrae are present. There is normal bony alignment. Bridging vertebral body osteophytes or syndesmophytes. Lower lumbar spine facet joint hypertrophy. Multilevel disc space height loss. Small vertebral body osteophytes. No vertebral body compression fractures. No suspicious bony lesions. Soft tissues: Overlying bowel gas pattern is normal. No suspicious soft tissue calcifications. Oblique images: No pars defects. IMPRESSION: Moderate to severe degenerative changes at the lumbar spine. Dictated by: Baltazar Pinon M.D. on 05/20/2025 at 14:18 Approved by: Baltazar Pinon M.D. on 05/20/2025 at 14:20
--- NOTE | 2025-05-20 09:18 | DI.RAD.S_ITS ---
PROCEDURE: XR HIP W PEL IF DONE RT 2V INDICATIONS: eval R hip and low back pain TECHNIQUE: AP pelvis with lateral view(s) of the right hip(s). COMPARISON: None. FINDINGS: Bones: No fractures or dislocations. Mild joint space loss. Acetabular roof sclerosis. Osteophytosis. No a vascular necrosis of the right femoral head. Pelvic ring appears intact. No suspicious bony lesions. Soft tissues: The visualized bowel gas pattern is normal. No suspicious soft tissue calcifications. IMPRESSION: Moderate bilateral hip DJD. Dictated by: Baltazar Pinon M.D. on 05/20/2025 at 14:22 Approved by: Baltazar Pinon M.D. on 05/20/2025 at 14:22
--- NOTE | 2025-05-20 09:18 | DI.RAD.S_ITS ---
PROCEDURE: XR TIBIA FIBULA LT 2V INDICATIONS: eval L calf pain TECHNIQUE: 2 views of the tibia and fibula were acquired. COMPARISON: None. FINDINGS: Bones: No fractures or dislocations. No suspicious bony lesions. Soft tissues: No suspicious soft tissue masses seen. Scant benign appearing calcifications. No radiopaque foreign body. IMPRESSION: No acute bony abnormality. Dictated by: Baltazar Pinon M.D. on 05/20/2025 at 14:20 Approved by: Baltazar Pinon M.D. on 05/20/2025 at 14:21
== END ==
PROVIDERS: PCP Registered Nurse Diabetes Educator; Referring Provider Registered Nurse Diabetes Educator; Visit Provider Registered Nurse Diabetes Educator
DX: M16.0 Bilateral primary osteoarthritis of hip (principal); M47.816 Spondylosis without myelopathy or radiculopathy, lumbar region; M79.662 Pain in left lower leg; M25.551 Pain in right hip; M54.50 Low back pain, unspecified
CPT/HCPCS: 72110; 73502; 73590

== ENCOUNTER → 2025-05-24 08:43 | Outpatient (CLI) | payer MEDICARE, OTHER, SELFPAY ==
[2020-05-14 14:26] VITALS: BMI 32.8
[2025-05-24 09:43] LABS: Alanine Aminotransferase 35 IU/L (<50); Albumin 4.1 g/dL (3.5-5.0); Albumin Globulin Ratio 1.4 (1.0-2.8); Alkaline Phosphatase 114 U/L (38-126); Blood Urea Nitrogen 18 mg/dL (9-20); Calcium 10.0 mg/dL (8.4-10.2); Carbon Dioxide 30 mmol/L (22-32); Chloride 102 mmol/L (98-107); Cholesterol 124 mg/dL (140-199); Estimated Glomerular Filt Rate > 60 mL/min (>60); Globulin 3.0 g/dL (1.7-4.1); Glucose 97 mg/dL (70-99); HDL Cholesterol 40 mg/dL (40-60); Potassium 5.2 mmol/L (3.4-5.1); Sodium 139 mmol/L (137-145); Total Protein 7.1 g/dL (6.3-8.2); Triglycerides 114 mg/dL (35-150)
[2025-05-24 09:44] LABS: HEMOLYSIS 25 (0-50)
[2025-05-24 10:19] LABS: TSH w/ Reflex to FT4 2.02 uIU/mL (0.47-4.68)
== END ==
PROVIDERS: PCP Registered Nurse Diabetes Educator; Referring Provider Physician Assistant; Visit Provider Physician Assistant
DX: E78.5 Hyperlipidemia, unspecified (principal); Z12.5 Encounter for screening for malignant neoplasm of prostate; Z80.42 Family history of malignant neoplasm of prostate; R97.20 Elevated prostate specific antigen [PSA]; I48.0 Paroxysmal atrial fibrillation; Z86.711 Personal history of pulmonary embolism; R03.0 Elevated blood-pressure reading, without diagnosis of hypertension
CPT/HCPCS: 36415; 80053; 80061; 82043; 82570; 84443; G0103

== ENCOUNTER → 2025-09-25 08:12 | Outpatient (CLI) | payer MEDICARE, OTHER, SELFPAY ==
[2020-05-14 14:26] VITALS: BMI 32.8
[2025-09-25 09:47] LABS: Alanine Aminotransferase 29 IU/L (<50); Albumin 4.0 g/dL (3.5-5.0); Albumin Globulin Ratio 1.3 (1.0-2.8); Alkaline Phosphatase 83 U/L (38-126); Blood Urea Nitrogen 28 mg/dL (9-20); Calcium 9.1 mg/dL (8.4-10.2); Carbon Dioxide 28 mmol/L (22-32); Chloride 105 mmol/L (98-107); Cholesterol 115 mg/dL (140-199); Estimated Glomerular Filt Rate > 60 mL/min (>60); Globulin 3.0 g/dL (1.7-4.1); Glucose 94 mg/dL (70-99); HDL Cholesterol 41 mg/dL (40-60); HEMOLYSIS 36 (0-50); Magnesium 2.1 mg/dL (1.6-2.3); Potassium 4.8 mmol/L (3.4-5.1); Sodium 139 mmol/L (137-145); Total Protein 7.0 g/dL (6.3-8.2); Triglycerides 81 mg/dL (35-150)
[2025-09-25 10:21] LABS: Thyroid Stimulating Hormone 1.83 uIU/mL (0.47-4.68)
== END ==
PROVIDERS: PCP Registered Nurse Diabetes Educator; Referring Provider Internal Medicine Cardiovascular Disease; Visit Provider Internal Medicine Cardiovascular Disease
DX: E78.5 Hyperlipidemia, unspecified (principal); I48.3 Typical atrial flutter; I48.91 Unspecified atrial fibrillation; I48.92 Unspecified atrial flutter
CPT/HCPCS: 36415; 80053; 80061; 83735; 84443